=== PATIENT | male | born 1965 | race Hispanic/Latino ===

== ENCOUNTER 2020-10-31 07:50 | Day surgery (SDC) | payer OTHER ==
[~2020-10-31] VITALS: Ht 170.2 cm; Wt 106.6 kg
[~2020-10-31 07:50] MED LIST: ROSU20TA31 PO
[2020-10-31] MEDS ORDERED: 0.9%NACL 1000ML 1,000 ML IV ONE (08:47)
[2020-10-31 08:50] VITALS: BP 136/93
[2020-10-31] MEDS ORDERED: GLYCOPYRROLATE 0.2 MG/ML 5 ML VIAL ONE (10:36)
[2020-10-31] MEDS ORDERED: PROPOFOL 10 MG/ML 20ML VIAL IV ONE (10:36)
[2020-10-31 11:40] VITALS: BP 98/62
[2020-10-31 11:50] VITALS: BP 125/84
[2020-10-31 12:00] VITALS: BP 126/86
== END 2020-10-31 12:15 | disposition home or self-care (01) ==
LOC: ENDO 07:50 → DAH 07:50 → ENDO 12:15
PROVIDERS: ATTEND Internal Medicine
DX: Z12.11 Encounter for screening for malignant neoplasm of colon (principal); Z20.822 Contact with and (suspected) exposure to COVID-19; K63.5 Polyp of colon; K57.30 Diverticulosis of large intestine without perforation or abscess without bleeding; E78.5 Hyperlipidemia, unspecified; E66.9 Obesity, unspecified; Z68.38 Body mass index [BMI] 38.0-38.9, adult
CPT/HCPCS: 45380; 45385; A4215 ×2; A4221; A4222; A4223; A4606; A4620; A4657; A4663; C9803; J2704; J3490; J7030; U0003